=== PATIENT | male | born 1970 | race Two or more races ===

== ENCOUNTER 2017-03-22 12:12 | Emergency (ER) | payer SELFPAY ==
[2017-03-22 12:40] VITALS: BP 117/72
[2017-03-22] MEDS ORDERED: FLUORESCEIN OPHTH TEST STRIP. OD ONE (13:00)
[2017-03-22] MEDS ORDERED: TETRACAINE 0.5% OPHTH SOLUTION 4ML BOTTLE. OD ONE (13:00)
--- NOTE | 2017-03-22 13:25 | PHYS DOC ---
Past Medical History Past Medical History: Diabetes-Type II, Hypertension Past Surgical History: No Surgical History Alcohol Use: None Drug Use: None Adult General Chief Complaint Chief Complaint: EYE PROBLEMS HPI HPI 46-year-old male presenting to the emergency department today with left eye visual disturbances. He reports starting yesterday in the shower he noticed a floater that moves around when he moves his eye. He denies being in a situation where foreign body would be getting in his eye. He denies any pain in his eye. He denies diplopia. He denies headache. He denies neck stiffness or confusion. Location left eye. Duration intermittent. No alleviating or exacerbating factors present. Review of systems is negative for fevers chills redness of the conjunctiva. He denies chest pain or shortness of breath. All other review of systems is negative unless otherwise noted in history of present illness. ED course: 46-year-old gentleman presenting the emergency department today with intermittent floaters of the left eye. Examination is unremarkable. I recommended the patient see an eye doctor in the next day or 2 as a referral. I also recommended the patient received an outpatient duplex ultrasound of his carotids within the next week. He then can follow-up with his primary care doctor in 5-7 days. Review of Systems Review of Systems SEE ABOVE. Current Medications Current Medications Current Medications Medications (Trade) Dose Ordered Sig/Jun Start Time Stop Time Status Last Admin Dose Admin Fluorescein Sodium (Ful-[place]) 1 strip 1X ONCE 03/22/17 13:00 03/22/17 13:01 DC 03/22/17 13:06 1 STRIP Tetracaine HCl (Tetracaine) 1 drop 1X ONCE 03/22/17 13:00 03/22/17 13:01 DC 03/22/17 13:06 1 DROP Allergies Allergies Allergies Coded Allergies Type Severity Reaction Last Updated Verified No Known Drug Allergies 04/17/15 No Physical Exam Physical Exam SEE ABOVE Constitutional: Well developed, well nourished, no acute distress, non-toxic appearance. [] HENT: Normocephalic, atraumatic, bilateral external ears normal, oropharynx moist, no oral exudates, nose normal. [] Eyes: Eye Exam: Visual Acuity: see nursing notes Visual [place]: Intact in all four quadrants bilaterally Lac ducts/glands: No swelling Lids w/ evertion: Normal, no foreign body Conj/[place]: Clear, negative Fluorescein/Speedy's Anterior Chamber: Clear Retina exam: No obvious abnormality, no signs of detachment or vitreal hemorrhage Neck: Normal range of motion, no tenderness, supple, no stridor. [] Cardiovascular:Heart rate regular rhythm, no murmur [] Lungs & Thorax: Bilateral breath sounds clear to auscultation [] Abdomen: Bowel sounds normal, soft, no tenderness, no masses, no pulsatile masses. [] Skin: Warm, dry, no erythema, no rash. [] Back: No tenderness, no CVA tenderness. [] Extremities: No tenderness, no cyanosis, no clubbing, ROM intact, no edema. [] Neurologic: Alert and oriented X 3, normal motor function, normal sensory function, no focal deficits noted. [] Psychologic: Affect normal, judgement normal, mood normal. [] Current Patient Data Vital Signs Vital Signs Date Time Temp Pulse Resp B/P (MAP) Pulse Ox O2 Delivery O2 Flow Rate FiO2 03/22/17 12:40 98.1 92 16 98 Room Air 98.1 EKG EKG [] Radiology/Procedures Radiology/Procedures [] Course & Med Decision Making Course & Med Decision Making Pertinent Labs and Imaging studies reviewed. (See chart for details) [] Dragon Disclaimer Dragon Disclaimer This electronic medical record was generated, in whole or in part, using a voice recognition dictation system. Departure Departure Impression: Primary Impression: Visual disturbance Disposition: 01 HOME, SELF-CARE Condition: STABLE Referrals: NO PCP (PCP) SANDRA PEARSON MD Patient Instructions: Visual Disturbances Additional Instructions: Thank you for allowing us to participate in your care today. Followup with and eye doctor within 1-2 days if your symptoms do not improve. Return to the ED if you have worsening vision. I recommend an outpatient ultrasound of your neck through your primary doctor. follow up with your primary care doctor in the next 2-3 days. Call your Primary Doctor tomorrow and inform them of your visit today. If you do not have a primary care provider you can ask for a list of our primary care providers. Return to the emergency department you have any new or concerning findings. This should be evaluated by the primary care physician and any necessary consulting services for continued management within a few days after discharge. Return to emergency room if you have any new or concerning symptoms including but not limited to fever, chills, nausea, vomiting, intractable pain, any new rashes, chest pain, shortness of air, uncontrolled bleeding, difficulty breathing, and/or vision loss. YISEL WEAVER MD Mar 22, 2017 13:25
== END 2017-03-22 13:30 | disposition home or self-care (01) ==
LOC: ER 12:12
DX: H53.9 Unspecified visual disturbance (principal); E11.9 Type 2 diabetes mellitus without complications; I10 Essential (primary) hypertension
CPT/HCPCS: 99283